=== PATIENT | female | born 1955 | race Caucasian/White ===

== ENCOUNTER 2020-12-06 08:41 | Outpatient (CLI) | payer MEDICARE, SELFPAY ==
--- NOTE | ~2020-12-06 | MM_ITS ---
EXAMINATION: MM screening [facility] BI w christine HISTORY: Screening mammogram TECHNIQUE: Craniocaudal and mediolateral oblique 3-D tomosynthesis images were obtained and synthetic 2-D images were generated. CAD analysis was submitted and interpreted. COMPARISON: 08/04/2018, 07/31/2016, 05/12/2015, 05/04/2015 BREAST PARENCHYMAL COMPOSITION: There are scattered areas of fibroglandular density. FINDINGS: RIGHT BREAST: A mass is present in the middle third of the lower-outer breast 6 cm from the nipple. LEFT BREAST: There is no evidence of suspicious mass, calcification, or architectural distortion to s uggest malignancy. There has been no significant interval change. IMPRESSION: 1. Right breast mass. 2. Additional mammographic views and possible breast ultrasound are recommended. BI-RADS Category 0: Incomplete: Needs additional imaging evaluation. Reviewed, dictated and finalized at location A. IMPRESSION: 1. Right breast mass. 2. Additional mammographic views and possible breast ultrasound are recommended . BI-RADS Category 0: Incomplete: Needs additional imaging evaluation.
--- NOTE | ~2020-12-06 | DEXA_ITS ---
Bone Density Report Name: Erlinda Vickers Age: 65 Sex: Female Ethnicity: White Date of : 1955 Indication: osteopenia; hyperparathyroidism; height loss; prior fracture; cancer; hysterectomy; postmenopausal Referring Provider: AJ VERDUZCO Study: Bone densitometry was performed. Exam Date: December 06, 2020 Accession number: [id number] Bone Density: Region BMD T-score Z-score Classification AP Spine (L1-L4) 0.851 -1.8 0.1 Osteopenia Femoral Neck (Left) 0.618 -2.1 -0.5 Osteopenia Total Hip (Left) 0.809 -1.1 0.2 Osteopenia Total Hip Bilateral Avg 0.799 -1.2 0.2 Osteopenia Femoral Neck (Right) 0.646 -1.8 -0.2 Osteopenia Total Hip (Right) 0.789 -1.3 0.1 Osteopenia World Health Organization criteria for BMD impression classify patients as: Normal (T-score at or above -1.0), Osteopenia (T-score between -1.0 and -2.5), or Osteoporosis (T-score at or below -2.5). 10-year Fracture Risk(1): Major Osteoporotic Fracture 17% Hip Fracture 2.6% Reported Risk Factors: [place] (), Neck BMD=0.618, BMI=34.0, previous fracture (1) FRAX(R) Version 3.08. Fracture probability calculated for an untreated patient. Fracture probability may be lower if the patient has received treatment. Previous Exams: Region Exam Age BMD T-score BMD Change BMD Change Date g/cm2 vs Baseline vs Previous AP Spine(L1-L4) 12/06/2020 65 0.851 -1.8 -0.032(-3.7%)# 0.012(1.4%) 08/04/2018 63 0.839 -1.9 -0.044(-5.0%)# -0.011(-1.3%) 07/31/2016 61 0.850 -1.8 -0.034(-3.8%)# -0.034(-3.8%)# 10/09/2012 57 0.884 -1.5 Total Hip(Left) 12/06/2020 65 0.809 -1.1 -0.026(-3.1%)# -0.043(-5.1%)* 08/04/2018 63 0.852 -0.7 0.018(2.1%)# 0.038(4.6%)* 07/31/2016 61 0.814 -1.0 -0.020(-2.4%)# -0.020(-2.4%)# 10/09/2012 57 0.834 -0.9 Total Hip(Right) 12/06/2020 65 0.789 -1.3 -0.049(-5.9%)# -0.111(-12.4%) 08/04/2018 63 0.900 -0.3 0.062(7.4%)# 0.084(10.3%)* 07/31/2016 61 0.816 -1.0 -0.022(-2.6%)# -0.022(-2.6%)# 10/09/2012 57 0.838 -0.8 *Denotes significance at 95% confidence level, LSC for AP Spine = 0.022 g/cm2, LSC for Total Hip = 0.027 g/cm2 Clinical Information Provided by Patient: Has had a low trauma fracture Has used the following medications: Vitamin D Has the following medical conditions: Cancer, Hyperparathyroidism, Hysterectomy Patient maximum height was 62 Menopause Age: 59 Onset of menses at age 12 Number of children 1
== END 2020-12-06 08:42 | disposition home or self-care (01) ==
LOC: ANHIMG 08:44
PROVIDERS: PCP Internal Medicine; Visit Provider Obstetrics & Gynecology
DX: Z12.31 Encounter for screening mammogram for malignant neoplasm of breast (principal); Z78.0 Asymptomatic menopausal state; R92.8 Other abnormal and inconclusive findings on diagnostic imaging of breast; M85.88 Other specified disorders of bone density and structure, other site; M85.852 Other specified disorders of bone density and structure, left thigh; M85.851 Other specified disorders of bone density and structure, right thigh
CPT/HCPCS: 77063; 77067; 77080

== ENCOUNTER 2023-03-28 10:27 | Outpatient (CLI) | payer MEDICARE, SELFPAY ==
--- NOTE | ~2023-03-28 | DEXA_ITS ---
Bone Density Report Name: WAYLON SIMMONS Age: 67 Sex: Female Ethnicity: White Date of : 1955 Indication: osteopenia; cancer; hysterectomy; postmenopausal Referring Provider: AJ VERDUZCO Study: Bone densitometry was performed. Exam Date: March 28, 2023 Accession number: [id number] Bone Density: Region BMD T-score Z-score Classification AP Spine(L1-L4) 0.828 -2.0 0.0 Osteopenia Femoral Neck (Left) 0.606 -2.2 -0.5 Osteopenia Total Hip (Left) 0.799 -1.2 0.3 Osteopenia Femoral Neck (Right) 0.613 -2.1 -0.4 Osteopenia Total Hip (Right) 0.816 -1.0 0.4 Normal Total Hip Mean 0.808 -1.1 0.4 Osteopenia World Health Organization criteria for BMD impression classify patients as: Normal (T-score at or above -1.0), Osteopenia (T-score between -1.0 and -2.5), or Osteoporosis (T-score at or below -2.5). 10-year Fracture Risk(1): Major Osteoporotic Fracture 11% Hip Fracture 2.1% Reported Risk Factors: [place] (), Neck BMD=0.606, BMI=36.1 (1) FRAX(R) Version 3.08. Fracture probability calculated for an untreated patient. Fracture probability may be lower if the patient has received treatment. Previous Exams: Region Exam Age BMD T-score BMD Change BMD Change Date g/cm2 vs Baseline vs Previous AP Spine (L1-L4) 03/28/2023 67 0.828 -2.0 -0.022 (-2.6%) -0.023 (-2.7%) 12/06/2020 65 0.851 -1.8 0.001 (0.1%) 0.012 (1.4%) 08/04/2018 63 0.839 -1.9 -0.011 (-1.3%) -0.011 (-1.3%) 07/31/2016 61 0.850 -1.8 Total Hip(Left) 03/28/2023 67 0.799 -1.2 -0.015 (-1.9%) -0.010 (-1.2%) 12/06/2020 65 0.809 -1.1 -0.005 (-0.7%) -0.043 (-5.1%) 08/04/2018 63 0.852 -0.7 0.038 (4.6%)* 0.038 (4.6%)* 07/31/2016 61 0.814 -1.0 Total Hip(Right) 03/28/2023 67 0.816 -1.0 0.000 (0.0%) 0.027 (3.5%)* 12/06/2020 65 0.789 -1.3 -0.027 (-3.3%) -0.111 (-12.4% 08/04/2018 63 0.900 -0.3 0.084 (10.3%)* 0.084 (10.3%)* 07/31/2016 61 0.816 -1.0 *Denotes significance at 95% confidence level, LSC for AP Spine = 0.022 g/cm2, LSC for Total Hip = 0.027 g/cm2 Clinical Information Provided by Patient: Has used the following medications: Vitamin D, Calcium Has the following medical conditions: Cancer, Hysterectomy Patient maximum height was 62 Menopause Age: 59 No regular weight bearing exercise Onset of menses at age 12 Number of children 1 Impression: The patient has low bone mass, base
== END 2023-03-28 10:28 | disposition home or self-care (01) ==
LOC: ANHIMG 10:29
PROVIDERS: PCP Internal Medicine; Visit Provider Obstetrics & Gynecology
DX: M85.88 Other specified disorders of bone density and structure, other site (principal); M85.852 Other specified disorders of bone density and structure, left thigh; M85.851 Other specified disorders of bone density and structure, right thigh
CPT/HCPCS: 77080